=== PATIENT | female | born 1990 | race Caucasian/White ===

== ENCOUNTER 2021-06-02 22:19 | Inpatient (IN) | payer OTHER ==
[~2021-06-02] VITALS: Ht 162.6 cm; Wt 82.1 kg
[~2021-06-02 22:19] MED LIST: PRILOSEC10 MG
[2021-06-02] MEDS ORDERED: PRENATAL TABLE1 EAC1 PO (23:06)
== END 2021-06-05 17:49 | disposition home or self-care (01) | DRG 807 ==
LOC: LDR 22:19 → SURG-SUITE 22:19 → LDR 22:23 → OB/GYN 06-03 17:48 → SURG-SUITE 06-03 19:01
PROVIDERS: ADMIT Obstetrics & Gynecology; ATTEND Obstetrics & Gynecology
PROC: 10E0XZZ Delivery of Products of Conception, External Approach (ICD-10-PCS; principal; 2021-06-02)
PROC: 4A1HXFZ Monitoring of Products of Conception, Cardiac Rhythm, External Approach (ICD-10-PCS; 2021-06-02)
DX: O80 Encounter for full-term uncomplicated delivery (principal); Z37.0 Single live birth; Z3A.39 39 weeks gestation of pregnancy; Z20.822 Contact with and (suspected) exposure to COVID-19